=== PATIENT | female | born 1995 | race Caucasian/White ===

== ENCOUNTER 2020-05-30 16:44 | Emergency (ER) | payer MEDICAID, OTHER ==
[~2020-05-30] VITALS: Ht 177.8 cm; Wt 106.6 kg
[2020-05-30 17:42] VITALS: BP 130/90
== END 2020-05-30 17:47 | disposition home or self-care (01) ==
LOC: ER 16:44
DX: B86 Scabies (principal)

== ENCOUNTER 2022-08-14 21:58 | Emergency (ER) | payer MEDICAID ==
[~2022-08-14] VITALS: Ht 175.3 cm; Wt 110.0 kg
[2022-08-14 23:40] LABS: Urine Bacteria FEW /hpf (None Seen); Urine Blood Negative /uL (Negative); Urine Mucus FEW (None Seen); Urine Specific Gravity 1.029 (1.001-1.035); Urine WBC 3 /hpf (0 - 5)
[2022-08-15 02:27] LABS: Alcohol, Urine < 3.0 mg/dL (0-10); Amphetamine Screen, Urine POSITIVE (NEGATIVE); Barbiturate Scree,Urine NEGATIVE (NEGATIVE); Cannabinoid Screen, Urine NEGATIVE (NEGATIVE); Cocaine Screen, Urine POSITIVE (NEGATIVE)
[2022-08-15 02:35] LABS: Benzodiazephine Screen, Urine NEGATIVE (NEGATIVE); Opiate Scree,Urine NEGATIVE (NEGATIVE); Phencyclidine Screen, Urine NEGATIVE (NEGATIVE)
[2022-08-15] MEDS ORDERED: LORazepam 2MG/ML-1ML VIAL IM ONE ×2 (02:45→05:00)
[2022-08-15] MEDS ORDERED: diphenhdrAMINE HCL 50 MG/1 ML VL IM ONE (03:15)
[2022-08-15 03:20] LABS: Basophils # (auto) 0 10 ^3/uL (0-0.2); Basophils % (auto) 0.5 % (0.0-2.0); Eosinophils # (auto) 0.1 10 ^3/uL (0-0.8); Eosinophils % (auto) 0.6 % (0.0-7.0); Hemoglobin 14.1 g/dL (12.2-16.2); Lymphocytes # (auto) 2.2 10 ^3/uL (0.4-5.4); Mean Corpuscular Hemoglobin 29.5 pg (28.0-32.0); Mean Corpuscular Hgb Conc. 34.4 g/dL (32.0-36.0); Mean Corpuscular Volume 85.8 fL (80.0-100.0); Monocytes # (auto) 0.7 10 ^3/uL (0-1.3); Monocytes % (auto) 6.9 % (0.0-12.0); Neutrophils # (auto) 7.4 10 ^3/uL (1.6-8.6); Nucleated Red Blood Cells % 0.1 %; Red Blood Cells 4.78 10^6/uL (4.0-5.20); Red Cell Distribution Width 13.2 % (11.8-14.3); White Blood Cell 10.5 10^3/uL (4.4-10.8)
[2022-08-15 04:57] LABS: Chloride 108 mmol/L (98-107); Sodium 135 mmol/L (136-145)
[2022-08-15 05:09] LABS: Alanine Aminotransferase 33 U/L (13-56); Alkaline Phosphatase 83 U/L (45-117); Anion Gap 8 (5-15); Aspartate Aminotransferase 27 U/L (15-37); BUN/Creatinine Ratio 19.4 (10.0-20.0); Bilirubin, Total 1.7 mg/dL (0.2-1.0); Blood Urea Nitrogen 13 mg/dL (7-18); Calcium 9.7 mg/dL (8.5-10.1); Carbon Dioxide 19 mmol/L (21-32); GFR African American 137 mL/min; GFR Non-African American 113 mL/min; Glucose 102 mg/dL (74-106); Total Protein 7.7 g/dL (6.4-8.2)
[2022-08-15 05:14] LABS: Salicylate < 1.7 mg/dL (2.8-20.0)
[2022-08-15 05:15] LABS: Acetaminophen < 2.0 ug/mL (10-30)
[2022-08-15 05:16] LABS: Blood Alcohol < 3.0 mg/dL (0-5)
[2022-08-15 16:43] VITALS: BP 156/92
== END 2022-08-15 23:56 | disposition left against medical advice (07) ==
LOC: ER 21:58
DX: F23 Brief psychotic disorder (principal); F11.20 Opioid dependence, uncomplicated; F15.10 Other stimulant abuse, uncomplicated; F14.10 Cocaine abuse, uncomplicated
CPT/HCPCS: 36415; 80053; 80307; 80320; 80329; 81001; 81025; 85025; 96372; 99284; J1200; J2060